=== PATIENT | male | born 1955 | race Caucasian/White ===

== ENCOUNTER → 2024-01-15 | Outpatient (CLI) | payer OTHER | LOC: RAD 10:17 | DX: Z01.89 Encounter for other specified special examinations (principal); M50.322 Other cervical disc degeneration at C5-C6 level; M50.323 Other cervical disc degeneration at C6-C7 level; M48.02 Spinal stenosis, cervical region; M89.38 Hypertrophy of bone, other site; M47.812 Spondylosis without myelopathy or radiculopathy, cervical region; M43.8X6 Other specified deforming dorsopathies, lumbar region; M47.816 Spondylosis without myelopathy or radiculopathy, lumbar region; M48.061 Spinal stenosis, lumbar region without neurogenic claudication ==